=== PATIENT | female | born 1970 | race Caucasian/White ===

== ENCOUNTER 2022-02-07 11:12 | Outpatient (RCR) | payer BC, SELFPAY | END 2022-02-19 23:59 | disposition home or self-care (01) | LOC: CCIC 11:12 | PROVIDERS: PCP Family Medicine; Visit Provider Internal Medicine Hematology & Oncology | DX: C50.912 Malignant neoplasm of unspecified site of left female breast (principal); Z17.0 Estrogen receptor positive status [ER+]; Z79.810 Long term (current) use of selective estrogen receptor modulators (SERMs); R23.2 Flushing; R63.4 Abnormal weight loss | CPT/HCPCS: 99212; 99215 ==

== ENCOUNTER 2022-02-22 13:20 | Outpatient (CLI) | payer BC, SELFPAY ==
--- NOTE | 2022-02-22 13:30 | CRLHL7_ITS ---
For Patients: As a result of the Century Cures Act, medical imaging exams and procedure reports are released immediately into your electronic medical record. You may view this report before your referring provider. If you have questions, please contact your health care provider. DXA BONE MINERAL DENSITY STUDY Current height (in): 65.0. Weight (lb): 195.0. Menopause age: 36. Ethnicity: White. 1. Have you had a previous hip or vertebral fracture? No. 2. Have you had any fractures during your adult life which did not result from significant trauma (e.g., auto accident)? No. 3. Did either of your parents have a hip fracture? No. 4. Do you smoke? No. 5. Have you ever taken Glucocorticoids? No. 6. Do you have rheumatoid arthritis? No. 7. Do you have secondary osteoporosis? No. 8. Do you drink 3 or more alcoholic drinks per day? No. 9. Are you being treated for osteoporosis? No. 10. Have you ever taken any of the following medications: Actonel, Evista, Fosamax, Miacalcin, Reclast, Boniva, Forteo, HRT (i.e. estrogen/hormone therapy), Protelos, Prolia, Vitamin D, Calcium, other ??? please specify. ANSWER: Yes, vitamin D, calcium. 11. Do you have any of the following medical conditions: Anorexia or bulimia, asthma or emphysema, end stage renal disease, hyperparathyroidism, any seizure disorders, cancer, inflammatory bowel diseases, hysterectomy, other ??? please specify. ANSWER: Yes, cancer. 12. What was your maximum height (inches)? 65. 13. Do you perform weight bearing exercise regularly? Yes. 14. Do you regularly consume dairy products? Yes. 15. Do you drink caffeinated beverages? Yes. . 16. At what age did your period start? 14. 17. Are you premenopausal? No. 18. How many full term pregnancies have you had? 5. 19. Have you ever missed your period for more than 6 months in a row (not including or menopause)? No. TECHNIQUE: Bone mineral density study was performed using the [employer]. FINDINGS: The results of the study expressed as bone mineral density (BMD) are as follows: Lumbar spine L1 to L4: BMD: 0.967 g/cm2. T-score: -0.7. Z-score: 0.2. Neck Left: BMD: 0.947 g/cm2. T-score: 0.9. Z-score: 1.8. Right: BMD: 0.912 g/cm2. T-score: 0.6. Z-score: 1.5. Total Left: BMD: 1.136 g/cm2. T-score: 1.6. Z-score: 2.2. Right: BMD: 1.104 g/cm2. T-score: 1.3. Z-score: 1.9. IMPRESSION: Normal bone density. *Comparison exams done prior to 12/2019 were performed on different unit, [employer]. Marin Velásquez M.D. Diagnostic Radiologist [email or web address] MONI/josé / be/Dictated by: Marin Velásquez MD @ 02/22/2022 3:43:00 PM (Electronically Signed)
== END 2022-02-22 13:21 | disposition home or self-care (01) ==
PROVIDERS: PCP Family Medicine; Visit Provider Internal Medicine Hematology & Oncology
DX: N95.9 Unspecified menopausal and perimenopausal disorder (principal)
CPT/HCPCS: 77080

== ENCOUNTER 2022-10-12 13:00 | Outpatient (RCR) | payer BC, SELFPAY ==
--- NOTE | 2022-06-13 14:50 | PC.NURSE ---
ONCOLOGY TRANSFER: Patient called to discuss the letter she had received in the mail. Patient informed that starting in September, Dr. Gardner would be part of the [facility] team. Gabbi would like to continue her care with Dr. Gardner and the [facility] providers. She is scheduled to see a provider in July but is willing to push this out to September if needed.
== END 2022-11-13 23:59 | disposition home or self-care (01) ==
LOC: CCIC 13:00
PROVIDERS: PCP Family Medicine; Visit Provider Internal Medicine Hematology & Oncology
DX: C50.912 Malignant neoplasm of unspecified site of left female breast (principal); Z17.0 Estrogen receptor positive status [ER+]; Z79.810 Long term (current) use of selective estrogen receptor modulators (SERMs); Z90.13 Acquired absence of bilateral breasts and nipples; R23.2 Flushing; M79.10 Myalgia, unspecified site
CPT/HCPCS: 99212; 99214

== ENCOUNTER 2023-03-02 10:50 | Outpatient (CLI) | payer BC, SELFPAY | END 2023-03-02 10:51 | disposition home or self-care (01) | PROVIDERS: PCP Family Medicine; Visit Provider Family Medicine | DX: M25.50 Pain in unspecified joint (principal); R25.2 Cramp and spasm | CPT/HCPCS: 80053; 82550; 83735; 84443; 86039; 86140; 86431; 86618 ==

== ENCOUNTER 2023-05-10 08:55 | Outpatient (CLI) | payer BC, SELFPAY ==
--- NOTE | 2023-05-10 09:15 | MR_ITS ---
[address] [address] Phone:?[phone] Fax:?[phone] Referring Physician Information: Nathan Alcantara M.D. [address] [facility] [address] Phone:?[phone] Fax:?[phone] Patient:Griselda Dominguez D.O.B:?1970 Sex:?Female Phone:?[phone] [facility] MRN:?[id number] Exam Date:?05/10/2023 EXAM: MRI of the RIGHT KNEE, without contrast CLINICAL INFORMATION: Female, 53 years old, with bilateral knee pain. INDICATION: Evaluate knee pain. PRIOR SURGERY: None reported. PLAIN FILMS: None available. COMPARISONS: No prior MRIs available. TECHNICAL INFORMATION: Using a 1.5T MR scanner and a localizing surface coil: sagittals: PD, PDFS coronals: PD, STIR axials: PD, T2FS SEDATION: None CONTRAST: None FINDINGS: Knee joint: Effusion: Small right knee effusion. Popliteal cyst: None. Loose bodies: None. Subcutaneous and extra-articular soft tissues: Unremarkable. Ligaments: ACL: Intact ACL anteromedial and posterolateral bundles, without sprain or tear. PCL: Intact PCL, without acute or chronic injury. MCL: Intact MCL superficial and deep layers, without injury. LCL: Intact LCL, without injury. Posterolateral corner: No posterolateral corner soft tissue injury. Popliteus, biceps femoris, iliotibial band, popliteofibular ligament and lateral gastrocnemius are intact. Posteromedial corner: No posteromedial corner soft tissue injury. Semimembranosus, pes anserine tendons and posterior oblique ligament are without injury, tendinopathy or bursitis. Extensor mechanism: Patellar tendon: Intact, without tendinopathy. Quadriceps tendon: Intact, without tendinopathy. Retinacula: Medial and lateral retinacula are intact. Fat pads: Unremarkable infrapatellar Hoffa's, quadriceps and prefemoral fat pads. Medial compartment: Medial meniscus: No articular surface, meniscosynovial junction or root tear. No displacement, extrusion or parameniscal cyst. Medial femoral condyle: No chondromalacia or osteochondral abnormality. Medial tibial plateau: No chondromalacia or osteochondral abnormality. Lateral compartment: Lateral meniscus: No articular surface, meniscosynovial junction or root tear. No displacement, extrusion or parameniscal cyst. Lateral femoral condyle: Approximately 4 x 2 mm partial-thickness chondral defect of the central surface of the lateral femoral condyle, without reactive osseous changes (sagittal PD series 6 image 10 and coronal STIR series 9 image 20). Lateral tibial plateau: No chondromalacia or osteochondral abnormality. Patellofemoral joint: Patella: Generalized grade II/III chondromalacia of the patella, with mild marginal osteophytosis. Trochlea: Broad-based grade III chondromalacia of the medial facet and central sulcus of the trochlea, with mild marginal osteophytosis. Proximal tibiofibular joint: Unremarkable, without evidence of ligament sprain injury, joint effusion or adjacent marrow edema. Bones: No stress/occult fractures or other marrow edema/pathology. IMPRESSION: 1. 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 2. Approximately 4 x 2 mm partial-thickness chondral defect of the lateral femoral condyle, without reactive osseous changes. 3. Small knee joint effusion. No popliteal (Smith's) cyst. 4. No medial or lateral meniscal tear. 5. No cruciate or collateral ligament sprain/tear. 6. No osseous or myotendinous abnormality. BC Electronically signed on 05/10/2023 11:52:00 AM by Jimmie Ramsay M.D.
--- NOTE | 2023-05-10 10:15 | MR_ITS ---
[address] [address] Phone:?[phone] Fax:?[phone] Referring Physician Information: Nathan Alcantara M.D. [address] [facility] [address] Phone:?[phone] Fax:?[phone] Patient:Griselda Dominguez D.O.B:?1970 Sex:?Female Phone:?[phone] [facility] MRN:?[id number] Exam Date:?05/10/2023 EXAM: MRI of the LEFT KNEE, without contrast CLINICAL INFORMATION: Female, 53 years old, with bilateral knee pain. INDICATION: Evaluate knee pain. PRIOR SURGERY: None reported. PLAIN FILMS: None available. COMPARISONS: No prior MRIs available. TECHNICAL INFORMATION: Using a 1.5T MR scanner and a localizing surface coil: sagittals: PD, PDFS coronals: PD, STIR axials: PD, T2FS SEDATION: None CONTRAST: None FINDINGS: Knee joint: Effusion: Small left knee effusion. Popliteal cyst: None. Loose bodies: None. Subcutaneous and extra-articular soft tissues: Unremarkable. Ligaments: ACL: Intact ACL anteromedial and posterolateral bundles, without sprain or tear. PCL: Intact PCL, without acute or chronic injury. MCL: Intact MCL superficial and deep layers, without injury. LCL: Intact LCL, without injury. Posterolateral corner: No posterolateral corner soft tissue injury. Popliteus, biceps femoris, iliotibial band, popliteofibular ligament and lateral gastrocnemius are intact. Posteromedial corner: Mild semimembranosus tendinopathy, without tear. Pes anserine tendons and posterior oblique ligament are without injury, tendinopathy or bursitis. Extensor mechanism: Patellar tendon: Intact, without tendinopathy. Quadriceps tendon: Intact, without tendinopathy. Retinacula: Medial and lateral retinacula are intact. Fat pads: Unremarkable infrapatellar Hoffa's, quadriceps and prefemoral fat pads. Medial compartment: Medial meniscus: Focal undersurface fraying of the medial meniscal posterior horn is present on a single image, without more well-defined evidence of a meniscal tear (sagittal PD series 5 image 10). Medial femoral condyle: No chondromalacia or osteochondral abnormality. Medial tibial plateau: No chondromalacia or osteochondral abnormality. Lateral compartment: Lateral meniscus: No articular surface, meniscosynovial junction or root tear. No displacement, extrusion or parameniscal cyst. Lateral femoral condyle: Broad-based grade II chondromalacia of the central surface with a 4 x 4 m partial-thickness chondral defect (coronal STIR series 8 image 20 and sagittal PDFS series 6 image 22). Lateral tibial plateau: Broad-based grade II chondromalacia throughout the posterior aspect of the lateral tibial plateau, with mild marginal osteophytosis. Patellofemoral joint: Patella: Broad-based grade II/III chondromalacia of the medial facet and median ridge of the patella, with mild marginal osteophytosis. Trochlea: Broad-based grade III chondromalacia throughout the medial facet and central sulcus, with mild marginal osteophytosis. Proximal tibiofibular joint: Unremarkable, without evidence of ligament sprain injury, joint effusion or adjacent marrow edema. Bones: No stress/occult fractures or other marrow edema/pathology. IMPRESSION: 1. 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 2. Minimal osteoarthritis of the lateral compartment. 3. Focal undersurface fraying of the medial meniscal posterior horn, without evidence of a more well-defined medial or lateral meniscal tear. 4. Small knee joint effusion. No popliteal (Smith's) cyst. 5. Mild semimembranosus tendinopathy, without tear. 6. No cruciate or collateral ligament sprain/tear. BC Electronically signed on 05/10/2023 12:01:00 PM by Jimmie Ramsay M.D.
== END 2023-05-10 08:56 | disposition home or self-care (01) ==
LOC: MRI 08:56
PROVIDERS: PCP Family Medicine; Visit Provider Orthopaedic Surgery
DX: M25.561 Pain in right knee (principal); M25.562 Pain in left knee; M17.12 Unilateral primary osteoarthritis, left knee; M25.462 Effusion, left knee; M17.11 Unilateral primary osteoarthritis, right knee; M25.461 Effusion, right knee
CPT/HCPCS: 73721

== ENCOUNTER 2023-07-02 13:30 | Outpatient (RCR) | payer BC, SELFPAY | END 2023-07-24 23:59 | disposition home or self-care (01) | LOC: CCIC 13:30 | PROVIDERS: PCP Family Medicine; Visit Provider Physician Assistant | DX: C50.912 Malignant neoplasm of unspecified site of left female breast (principal); Z17.0 Estrogen receptor positive status [ER+]; Z90.13 Acquired absence of bilateral breasts and nipples; N95.9 Unspecified menopausal and perimenopausal disorder; M25.50 Pain in unspecified joint; R25.2 Cramp and spasm; R23.2 Flushing | CPT/HCPCS: 99212; 99214; 99215 ==

== ENCOUNTER 2023-10-11 08:40 | Outpatient (CLI) | payer BC, SELFPAY | END 2023-10-11 08:41 | disposition home or self-care (01) | PROVIDERS: PCP Family Medicine; Visit Provider Obstetrics & Gynecology | DX: Z01.419 Encounter for gynecological examination (general) (routine) without abnormal findings (principal); C50.919 Malignant neoplasm of unspecified site of unspecified female breast; M79.7 Fibromyalgia; N95.9 Unspecified menopausal and perimenopausal disorder; R23.2 Flushing; N89.8 Other specified noninflammatory disorders of vagina | CPT/HCPCS: 80053; 80061; 84443 ==

== ENCOUNTER 2023-10-17 08:24 | Outpatient (CLI) | payer BC, SELFPAY ==
--- OUTSIDE RECORDS SUMMARY | 2023-10-26 12:07 | XMS_ITS | Clinical Summary ---
Author Name Unknown Organization [email or web address] [facility] Address [place], [place] [address] Care Team Providers Care Supervisor Crack Off Name Role Phone Marin Forrest MD Primary Care Provider + Allergies No known active allergies Medications Medication Sig Dispensed Refills Start Date End Date Status tamoxifen (NOLVADEX) 20 mg tablet 02/14/2021 Active oxybutynin (DITROPAN) 5 mg tablet Take 5 mg by mouth two times daily. 08/02/2022 Active ciclopirox solution (LOPROX) 8 % solutionIndications:D ermatophytosis of nail Apply topically to affected area(s) at bedtime. 6.6 mL 2 10/04/2022 Active Encounters Date Type Department Care Team Description 10/25/2023 Lab Requisition [facility] [phone] Alex, Merly Villa MD from Last 3 Months Social History Tobacco Use Types Packs/Day Years Used Date Smoking Tobacco: Never Smokeless Tobacco: Never Tobacco Cessation:Counseling Given: Yes Sex and Gender Information Value Date Recorded Sex Assigned at Not on file Gender Identity Not on file Sexual Orientation Not on file Obstetrics History Last Filed Vital Signs Vital Sign Reading Time Taken Comments Blood Pressure 129/84 02/23/2021 10:27 AM CDT Pulse 86 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 Temperature 37 ??C (98.6 ??F) 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 Respiratory Rate - - Oxygen Saturation 97% 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 Inhaled Oxygen Concentration - - Weight 95.7 kg (211 lb) 04/06/2020 2:08 PM CDT Height - - Body Mass Index - - Plan of Treatment Health Maintenance Due Date Last Done Comments Tdap 1980 Depression screening for age 12+ 1981 HIV for age 15-65 1984 BMI (ht and wt on same day) for age 18+ 1987 Hepatitis C screening for age 18-79 1987 Tetanus booster 1989 Pap test for age 21-65 1990 Colonoscopy through age 75 2014 Lipids for age 45-75 2014 Mammogram for age 45-75 2014 Zoster (shingles) series for age 50+ (1 of 2) 2019 COVID-19 vaccine series (2022-24 season) 2023 04/03/2022, 10/20/2021, 04/05/2021, Additional history exists Influenza for age 50-64 03/23/2024 Pneumococcal series for age 6-64 Aged Out No longer eligible based on patient's age to complete this topic Care Teams Supervisor Crack Off Relationship Specialty Start Date End Date Marin Forrest MD [address] [place] [address] PCP - General Family Practice 03/23/23
== END 2023-10-17 08:25 | disposition home or self-care (01) ==
LOC: NFLDREF 10-19 08:31
PROVIDERS: PCP Family Medicine; Referring Provider Family Medicine; Visit Provider Obstetrics & Gynecology
DX: Z01.419 Encounter for gynecological examination (general) (routine) without abnormal findings (principal); C50.919 Malignant neoplasm of unspecified site of unspecified female breast; R23.2 Flushing; N89.8 Other specified noninflammatory disorders of vagina; M79.7 Fibromyalgia; Z13.6 Encounter for screening for cardiovascular disorders
CPT/HCPCS: 80061

== ENCOUNTER 2024-01-07 08:40 | Outpatient (CLI) | payer BC, SELFPAY ==
--- OUTSIDE RECORDS SUMMARY | 2024-01-09 04:45 | XMS_ITS | Clinical Summary ---
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 Temperature 37 ??C (98.6 ??F) 09/27/2022 1:39 PM UNIT CLERK Respiratory Rate - - Oxygen Saturation 97% 09/27/2022 1:39 PM UNIT CLERK Inhaled Oxygen Concentration - - Weight 95.7 [...] on patient's age to complete this topic Procedures Procedure Name Priority Date/Time Associated Diagnosis Comments LAB TRACKING EVENT Routine 10/25/2023 9: 15 AM CDT PATH TISSUE EXAM Routine 10/25/2023 9:15 AM CDT from Last 3 Months Results * LAB TRACKING EVENT (10/25/2023 9:15 AM CDT) Other (Other) Client Collect / Unknown 10/25/2023 9:15 AM CDT 10/25/2023 3:20 PM CDT Merly Daisy Johnson MD LAB BILL ONLY [facility] [address] [place] [address], * PATH TISSUE EXAM (10/25/2023 9:15 AM CDT) Case Report Pathology Report ?Case: [id number] ? Authorizing Provider: ??Merly Johnson MD ?Collected: ? 10/25/2023 0915 ? Ordering Location: ? [facility] ?Received: ?10/25/2023 1610 ? Pathologist: ? Stephany Arce MD ? Specimens: ?? A) - Vulvar Biopsy, L Superior ? B) - Vulvar Biopsy, L Inferior ? 10/29/2023 5:18 PM CDT [facility] Final Diagnosis A) VULVA, SUPERIOR LEFT, BIOPSY: 1. Intradermal nevus 2. Negative for malignancy B) VULVA, INFERIOR LEFT, BIOPSY: 1. Skin, hair follicle, sebaceous gland, and detached keratin fragments, see comment 2. Negative for malignancy 10/29/2023 5:18 PM CDT [facility] Comment A) The melanocytic proliferation extends to the base of the lesion preventing complete histologic visualization. Clinical correlation with the overall size of the lesion, and presence of remaining or recurring pigment, is required for optimal treatment. B) The findings are nonspecific (deeper levels were evaluated). The keratin debris is nonspecific but may represent debris from an epidermal inclusion cyst in the right clinical context. Please correlate clinically. 10/29/2023 5:18 PM CDT [facility] Clinical Information Vulvar cysts. ? Inclusion cyst 10/29/2023 5:18 PM CDT [facility] Gross Description A) Received in formalin, labeled with the patient's name and superior L vulvar, is a single baig tissue fragment measuring 0.5 cm. ??Apparent base is inked. ??The specimen is bisected and entirely submitted in 1 cassette. B) Received in formalin, labeled with the patient's name and inferior L vulvar, is a 2.0 x 0.6 x 0.2 cm aggregate of a possible disrupted cyst and baig friable cyst contents. ??The specimen is entirely submitted in toto in 1 cassette. TLF 10/25/2023 10/29/2023 5:18 PM CDT [facility] Microscopic Description The final diagnosis is based on microscopic examination of appropriate sections of all specimens. 10/29/2023 5:18 PM CDT [facility] Additional Information Interpreted at [facility] - [address], [place] [address] 10/29/2023 5:18 PM CDT [facility] Other (Vulvar Biopsy) 10/25/2023 9:15 AM CDT 10/25/2023 4:10 PM CDT Specimen (specimen) (Vulvar Biopsy) 10/25/2023 9:15 AM CDT 10/25/2023 4:10 PM CDT Merly Johnson MD PATHOLOG[facility] [address] [place] [address], from Last 3 Months Care Teams Handle Maker Relationship Specialty Start Date End Date Marin Forrest MD [address] [place] [address] PCP - General Family Practice 03/23/23
== END 2024-01-07 08:41 | disposition home or self-care (01) ==
LOC: NFLDREF 01-09 04:43
PROVIDERS: PCP Family Medicine; Referring Provider Family Medicine; Visit Provider Obstetrics & Gynecology
DX: N95.9 Unspecified menopausal and perimenopausal disorder (principal); R23.2 Flushing
CPT/HCPCS: 80053

== ENCOUNTER 2024-04-07 08:13 | Outpatient (CLI) | payer BC, SELFPAY ==
--- OUTSIDE RECORDS SUMMARY | 2024-04-09 17:10 | XMS_ITS | Clinical Summary ---
Author Organization [employer] [facility] Address [place], [place] [address] Care Team Providers Care Change Agent Name Role Phone Marin Forrest MD Primary [...] at bedtime. 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
== END 2024-04-07 08:14 | disposition home or self-care (01) ==
LOC: NFLDREF 04-09 17:09
PROVIDERS: PCP Family Medicine; Referring Provider Family Medicine; Visit Provider Obstetrics & Gynecology
DX: E78.5 Hyperlipidemia, unspecified (principal); N95.9 Unspecified menopausal and perimenopausal disorder; R23.2 Flushing
CPT/HCPCS: 80053; 80061

== ENCOUNTER 2024-07-10 10:53 | Outpatient (CLI) | payer BC, SELFPAY | END 2024-07-10 10:54 | disposition home or self-care (01) | PROVIDERS: PCP Family Medicine; Referring Provider Family Medicine; Visit Provider Obstetrics & Gynecology | DX: N95.9 Unspecified menopausal and perimenopausal disorder (principal); R23.2 Flushing | CPT/HCPCS: 80053 ==

== ENCOUNTER 2024-07-10 11:10 | Outpatient (RCR) | payer BC, SELFPAY ==
--- OUTSIDE RECORDS SUMMARY | 2024-07-10 07:27 | XMS_ITS | Data Portability ---
Author Organization [place] [facility] [place] Address [address] [place] [address] Assessment No assessment recorded. Plan of Treatment Reminders Order Date Submit Date Provider Last Modified By Organization Details Last Modified Time Details Appointments None record ed. Lab None record ed. Referral None record ed. Procedures None record ed. Surgeries None record ed. Imaging None record ed. Medication Orders None record ed. Patient TargetsNo targets recorded. Patient InstructionsNo instructions recorded. Reason for Referral None Reported. Problems Name Problem SNOMED Code Status Onset Date Resolution Date Notes Provider Name and Address Organization Details Recorded Time Pain co-occurr ent and due to varicose veins of left leg 59181134818 [id number] Active 2021 Varicose veins of left lower extremiti es with pain; Status Update Date: 12/29/2021 12:29:38 PM Record Status: True Shana ge Code ID: I83.812 T erminal ID: [id number] ICD Code Version: 10 Varic ose veins of left lower extremiti es with pain; Status Update Date: 11/18/2021 4:22:48 PM Record Status: True Shana ge Code ID: I83.812 T erminal ID: [id number] ICD Code Version: 10 ; Start Date : 2 Not Available [employer] 3 22:42:29 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 Procedures Surgical History Date Name Laterality Status Provider Name and Address Organization Details Recorded Time 09/03/19 24 PVC - Ultrasound Guided Sclerotherapy completed Laura Krueger [place] [facility] 09/03/2023 10:36:30 07/31/19 24 PVC - Ultrasound Guided Sclerotherapy completed Laura Krueger [place] - [facility] 07/31/2023 10:18:12 07/30/19 24 PVC - EVRFA: Single Vein completed Rosanne Govea MD [address], [place], [address], [facility] 07/30/2023 12:01:43 Imaging Results None recorded. Procedure Notes None recorded. Medical Equipment None Reported. Medications Name Sig Start Date Stop Date Status Note LastModified by Organization Details LastModified Time triamcinol one acetonide 0.1 % topical cream APPLY TOPICALLY TO THE AFFECTED AREA TWICE DAILY active Not Available Not Available No t Available ciclopirox 8 % topical solution APPLY TOPICALLY TO THE AFFECTED AREA AT BEDTIME active Not Available Not Available No t Available oxybutynin chloride 5 mg tablet TAKE 1/2 TABLET BY MOUTH TWICE DAILY active Not Available Not Available No t Available tamoxifen 20 mg tablet TAKE 1 TABLET BY MOUTH EVERY DAY active Not Available Not Available No t Available pregabalin 50 mg capsule TAKE 1 CAPSULE BY MOUTH TWICE DAILY active Not Available Not Available No t Available oxybutynin chloride Take 1 Tablets oral active Method: Take Drug Strength: [address] leungClass: Urinary Antispasm odic - Smooth Muscle Relaxants PRN: False Dur ation: 0 Duratio nType: Unknown F illedBy: Leah Ley Transmit : False IsD iscontinu e: False Pat ientDisco ntinued: False IsC urrentMed ications: True IsSi gned: False Max DailyDose : 0 Not Available Not Available Not Available tamoxifen Take 1 Tablets oral active Method: Take Drug Strength: [address] leungClass: Antineopl astic - Selective Estrogen Receptor Modulator s (SERMs) P RN: False Dur ation: 0 Duratio nType: Unknown F illedBy: Leah Ley Transmit : False IsD iscontinu e: False Pat ientDisco ntinued: False IsC urrentMed ications: True IsSi gned: False Max DailyDose : 0 Not Available Not Available Not Available calcium 600 mg (as carbonate) -vitamin D3 12.5 mcg (500 unit) capsule TAKE 1 CAPSULE BY MOUTH 2 TIMES PER DAY WITH MEALS active Not Available Not Available No t Available Vitals None Recorded Social History None recorded. Functional Status None recorded. Mental Status None recorded. Family History Nothing Reported Notes:Paternal Grandmother: Varicose veins, ItemName: {AR}Family History , Paternal Grandmother: Varicose veins, ItemName: {AR}Family History , Paternal Grandmother: Varicose veins, ItemName: {AR}Family History , Paternal Grandmother: Varicose veins, ItemName: {AR}Family History , Paternal Grandmother: Varicose veins, ItemName: {AR}Family History , Paternal Grandmother: Varicose veins, ItemName: {AR}Family History Paternal Grandmother: Varicose veins, ItemName: {AR}Family History , Paternal Grandmother: Varicose veins, ItemName: {AR}Family History , Paternal Grandmother: Varicose veins, ItemName: {AR}Family History , Paternal Grandmother: Varicose veins, ItemName: {AR}Family History , Paternal Grandmother: Varicose veins, ItemName: {AR}Family History , Paternal Grandmother: Varicose veins, ItemName: {AR}Family History , Paternal Grandmother: Varicose veins, ItemName: {AR}Family History Medical History No medical history recorded. Gynecological HistoryNo gynecological history recorded. Obstetrics History GPAL:G 0 P 0 0 0 0 Past Encounters Encounter ID Performer Location Encounter Start Date Encounter Closed Date Diagnosis/Indication Diagnosis SNOMED-CT Code Diagnosis ICD10 Code [id number] MD Sury Alvarado [address] [place] [id number] 07/30/2023 10:50:50 07/30/2023 14:20:19 Pain co-occurrent and due to varicose veins of left leg [id number] I83.812 [id number] MD Sury Alvarado [address] [place] [id number] 07/31/2023 09:40:59 07/31/2023 10:58:10 Pain co-occurrent and due to varicose veins of left leg [id number] I83.812 [id number] Rosanne Govea MD Sury [address] [place] [id number] 09/03/2023 09:43:53 09/04/2023 11:35:10 Pain co-occurrent and due to varicose veins of left leg [id number] [id number] I83.812 Health Concerns Section Related Observation LastModified by Organization Detai ls LastModified Time None Recorded Concern Status LastModified by Organization Details LastModified Time None Recorded Advance Directives Directive None Recorded Payers Encounter Date Sequence Insurance Name Policy Number Policy Chaudhari Covered Member ID Chaudhari Member ID Guarantor Name 07/30/2023 2 [employer] [id number] Gabbi L Malecha [id number] Gabbi L Malecha 07/31/2023 2 [employer] [id number] Gabbi L Malecha [id number] Gabbi L Malecha 09/03/2023 2 [place] [id number] Gabbi L Malecha [id number] Gabbi L Malecha OBGyn Episode No OBEpisode recorded.
== END 2024-08-10 23:59 | disposition home or self-care (01) ==
LOC: CCIC 11:10
PROVIDERS: PCP Family Medicine; Visit Provider Internal Medicine Hematology & Oncology
DX: C50.912 Malignant neoplasm of unspecified site of left female breast (principal); Z17.0 Estrogen receptor positive status [ER+]
CPT/HCPCS: 99213; 99214; G0463

== ENCOUNTER 2024-10-13 13:32 | Outpatient (CLI) | payer BC, SELFPAY | END 2024-10-13 13:33 | disposition home or self-care (01) | PROVIDERS: PCP Family Medicine; Visit Provider Obstetrics & Gynecology | DX: E78.5 Hyperlipidemia, unspecified (principal) | CPT/HCPCS: 80053; 80061 ==

== ENCOUNTER 2025-06-11 10:26 | Outpatient (CLI) | payer BC, SELFPAY | END 2025-06-11 10:27 | disposition home or self-care (01) | PROVIDERS: PCP Family Medicine; Visit Provider Family Medicine | DX: R25.2 Cramp and spasm (principal); M25.50 Pain in unspecified joint | CPT/HCPCS: 80048; 82550; 85025; 85651 ==

== ENCOUNTER 2025-06-23 07:43 | Outpatient (CLI) | payer BC, SELFPAY ==
--- NOTE | 2025-06-23 08:00 | CRLHL7_ITS ---
For Patients: As a result of the Century Cures Act, medical imaging exams and procedure reports are released immediately into your electronic medical record. You may view this report before your referring provider. If you have questions, please contact your health care provider. INDICATION: Lower extremity pain. Bone pain. History of breast cancer. TECHNIQUE: 27.4 mCi Tc-99m labeled MDP administered. Delayed whole body images obtained with the patient at rest. Lateral views of the skull and cervical spine were performed. COMPARISON: Correlation is made with x-rays of the knees June 11, 2025. FINDINGS: There is good uptake of activity by the skeleton. Slight degenerative type uptake in the sternoclavicular joints, lower lumbar spine, medial left knee and subtly within the feet. No scintigraphic evidence for skeletal metastatic disease. The kidneys are present without obstruction. IMPRESSION: 1. No scintigraphic evidence for skeletal metastatic disease. 2. Subtle minor degenerative-type uptake within the sternoclavicular joints, lower lumbar spine, medial left knee and feet. Dictated by Anatoliy Sweeney MD @ 06/23/2025 12:47:22 PM (Electronically Signed)
== END 2025-06-23 07:44 | disposition home or self-care (01) ==
LOC: NM 07:44
PROVIDERS: PCP Family Medicine; Visit Provider Internal Medicine Hematology & Oncology
DX: M62.81 Muscle weakness (generalized) (principal); M25.50 Pain in unspecified joint; C50.919 Malignant neoplasm of unspecified site of unspecified female breast; M17.12 Unilateral primary osteoarthritis, left knee
CPT/HCPCS: 78306; A9503